=== PATIENT | male | born 1975 ===

== ENCOUNTER → 2020-08-15 10:15 | Outpatient (BNVA) | payer OTHER, SELFPAY | PROVIDERS: PCP Internal Medicine; Visit Provider Orthopaedic Surgery | DX: M77.10 Lateral epicondylitis, unspecified elbow (principal) | CPT/HCPCS: 20551; 99212; J1100 ==

== ENCOUNTER 2021-07-02 04:29 | Emergency (ER) | payer OTHER, SELFPAY ==
--- NOTE | 2021-07-02 | ECG_ITS ---
Test Reason : MEDICAL CLERANCE Blood Pressure : / mmHG Vent. Rate : 084 BPM Atrial Rate : 084 BPM P-R Int : 146 ms QRS Dur : 098 ms QT Int : 412 ms P-R-T Axes : 076 074 066 degrees QTc Int : 486 ms Normal sinus rhythm Prolonged QT Abnormal ECG When compared with ECG of 14-JUL-2019 07:20, Nonspecific T wave abnormality no longer evident in Inferior leads QT has lengthened Referred By: Fariha Dunlap Electronically Signed By:Pantera Jacobson
[2021-07-02 04:39] VITALS: BP 125/86; PULSE 102; RESP 16; TEMP 36.9; O2SAT 98; BMI 19.8
[2021-07-02 05:14] VITALS: BP 125/86; PULSE 102; RESP 17; TEMP 36.9; O2SAT 98
[2021-07-02 05:26] LABS: Basophils Percent Auto 0.5 % (0-2); Eosinophils Percent Auto 0.5 % (0-4); Hematocrit 32.4 % (42.0-52.0); Hemoglobin 10.8 g/dl (14.0-18.0); Imm Gran Abs Auto 0.01 X10*3/uL (0.00-0.03); Imm Gran Pct Auto 0.1 % (0.0-0.4); Lymphocytes Absolute Auto 1.9 X10*3/uL (1.2-4.9); Lymphocytes Percent Auto 23.6 % (20-40); MANUAL DIFF FLAG NO; Mean Corpuscular HGB Conc 33.3 g/dl (31.0-36.0); Mean Corpuscular Hemoglobin 29.7 pg (27.0-33.0); Mean Platelet Volume 8.8 fL (9.4-12.4); Monocytes Absolute Auto 0.7 X10*3/uL (0.1-1.2); Neutrophils Absolute Auto 5.5 x10*3/uL (2.0-8.3); Neutrophils Percent Auto 67.3 % (45-73); Platelet Count 412 X10*3/uL (160-400); Red Blood Count 3.64 X10*6/uL (4.60-5.80); White Blood Count 8.1 X10*3/uL (4.8-10.8)
[2021-07-02 05:27] LABS: Appearance Urine CLEAR; Color Urine YELLOW; Glucose Urine UA NEG (NEG); Leukocyte Esterase Urine NEG (NEG); Nitrite Urine NEG (NEG); Specific Gravity - Urine >= 1.030 (1.005-1.025); UACC Culture Trigger NO; Urine Blood TRACE (NEG); Urine Ketones 5 MG/DL (NEG); Urine Protein 1+ MG/DL (NEG-TRACE)
[2021-07-02 05:34] LABS: Bacteria Urine 1+ /LPF; Mucus Urine 2+ /LPF; Squamous Epithelial Cell Urine 1+ /LPF
[2021-07-02 05:39] LABS: COVID-19 Test Negative (Negative)
[2021-07-02 05:41] LABS: Ethanol < 10 mg/dL
--- NOTE | 2021-07-02 05:42 | PC.NURSE ---
Patient is currently in bed appears sleeping, no distress observed/reported, med rec completed, patient is currently not on any medication, [facility] referral completed/confirmed, patient will be evaluated in the morning, VSS, Behavior appropriate and non concerning at this time, will continue to monitor.
[2021-07-02 05:43] LABS: Anion Gap 12 (12-20); Blood Urea Nitrogen 15 mg/dL (9-16); Calcium 9.7 mg/dL (8.4-10.2); Carbon Dioxide 26 mmol/L (22-29); Chloride 104 mmol/L (96-108); Creatinine Clr Calc Pharmacy 72.2; Estimated Glomerular Filt Rate > 60; Glucose Random 116 mg/dL (60-115); Potassium 3.3 mmol/L (3.3-5.1); Sodium 139 mmol/L (135-145)
[2021-07-02 05:43] LABS: Amphetamine Screen Urine Not Detected (Not Detect); Barbiturates, Urine Not Detected (Not Detect); Benzodiazepines Screen Urine Not Detected (Not Detect); Cannabinoid Screen Urine POSITIVE (Not Detect); Cocaine Screen Urine POSITIVE (Not Detect); Fentanyl, urine Not Detected (Not Detect); Opiate Screen Urine Not Detected (Not Detect); Phencyclidine Screen Urine Not Detected (Not Detect)
--- NOTE | 2021-07-02 06:13 | ED_ITS ---
HPI - Psych General Chief Complaint: Psychiatric Symptoms Stated Complaint: crisis Time Seen by Provider: 07/02/21 06:13 History of Present Illness HPI Narrative: Patient is a 46-year-old male with a history of anxiety and depression. Long history of cocaine use. Patient used cocaine subsequently called PD state that he has hallucination of people coming into his house. EMS reports nobody was trying to go in his house. After calling the PD 3 times. Patient was sent to the ED for further evaluation. Patient denies suicidal homicidal ideation. Patient positive using cocaine. Denies using heroin or any other recreational drugs. Patient is from home. Related Data Home Medications Medication Instructions Recorded Confirmed No Known Home Meds 07/02/21 07/02/21 Allergies Allergy/AdvReac Type Severity Reaction Status Date / Time SEASONAL ALLERGIES Allergy Mild RUNNY Uncoded 04/11/20 14:57 NOSE, SNEEZING Review of Systems Review of Systems: No fever no chills no chest pain or shortness of breath Yes all other systems are reviewed and are negative PMFSH Past Medical History Attestation statement: The following information was validated with the patient. Medical History Anxiety and depression Bladder outlet obstruction Carpal tunnel syndrome Cognitive impairment GERD (gastroesophageal reflux disease) Hypercholesterolemia Low back pain Obstructive sleep apnea Polysubstance abuse Tear of lateral meniscus of right knee Surgical History History of bowel resection Family History Family History Father COPD (chronic obstructive pulmonary disease) ALS (amyotrophic lateral sclerosis) Mother No problems noted. Maternal Uncle Renal cell cancer Social History Social History (Updated 08/15/20 @ 10:45 by ZIGGY Wilde) Alcohol intake: never Current occupational status: unemployed Current occupation: right handed Physical Exam Vital Signs: Vital Signs: Last Vital Signs Temp 98.4 F 07/02/21 05:14 Pulse 102 H 07/02/21 05:14 Resp 17 07/02/21 05:14 BP 125/86 07/02/21 05:14 Pulse Ox 98 07/02/21 05:14 BMI result Body Mass Index 19.8 Appearance: Alert. Oriented X3. No acute distress. Eyes: Pupils equal, round and reactive to light. ENT: Pharynx normal. Neck: Normal inspection. Neck supple. No lymph nodes noted. No crepitus CVS: Normal heart rate and rhythm. Pulses normal. Normal S1 and S2 Respiratory: No respiratory distress. Breath sounds normal. No Wheezing. No rales Abdomen: Soft and nontender. No rigidity. No distention. good BS x4 Skin: Skin warm and dry. Normal skin color. Normal skin turgor. Extremities: No lower extremity edema. Neurovascular intact to all extremities. No Lacerations. No Rash Neuro: Oriented X 3. No motor deficit. No sensory deficit. Moving all extermities. No slurred speech. Cranial nerves grossly intact MDM - Psych MDM Narrative Medical decision making narrative: Patient well appearing no distress. Medically cleared sleeping. Awaiting evaluation by crisis. Lab Data Result diagrams: 07/02/21 05:13 07/02/21 05:13 Labs: Lab Results 07/02/21 07/02/21 07/02/21 Range/Units 05:13 05:13 05:13 WBC 8.1 (4.8-10.8) X10*3/uL RBC 3.64 L (4.60-5.80) X10*6/uL Hgb 10.8 L (14.0-18.0) g/dl Hct 32.4 L (42.0-52.0) % MCV 89.0 (80.0-98.0) fL MCH 29.7 (27.0-33.0) pg MCHC 33.3 (31.0-36.0) g/dl RDW 14.0 (11.0-16.0) % Plt Count 412 H (160-400) X10*3/uL MPV 8.8 L (9.4-12.4) fL Immature Gran % (Auto) 0.1 (0.0-0.4) % Neut % (Auto) 67.3 (45-73) % Lymph % (Auto) 23.6 (20-40) % [place] % (Auto) 8.0 (2-11) % Eos % (Auto) 0.5 (0-4) % Baso % (Auto) 0.5 (0-2) % Lymph # (Auto) 1.9 (1.2-4.9) X10*3/uL [place] # (Auto) 0.7 (0.1-1.2) X10*3/uL Eos # (Auto) 0.0 (0.0-0.4) X10*3/uL Baso # (Auto) 0.0 (0.0-0.2) X10*3/uL Abs Immat Gran (auto) 0.01 (0.00-0.03) X10*3/uL Absolute Neuts (auto) 5.5 (2.0-8.3) x10*3/uL Absolute Nucleated RBC 0.000 (0.0-0.012) X10*3/uL Nucleated RBC % (auto) 0.0 (0.0-0.2) /100WBC Sodium 139 (135-145) mmol/L Potassium 3.3 (3.3-5.1) mmol/L Chloride 104 (96-108) mmol/L Carbon Dioxide 26 (22-29) mmol/L Anion Gap 12 (12-20) BUN 15 (9-16) mg/dL Creatinine 1.11 (0.5-1.4) mg/dL Estim Creat Clear Calc 72.2 Estimated GFR > 60 Random Glucose 116 H (60-115) mg/dL Calcium 9.7 (8.4-10.2) mg/dL Urine Color Urine Appearance Urine pH (5.0-8.0) Ur Specific [place] (1.005-1.025) Urine Protein (NEG-TRACE) MG/DL Urine Glucose (UA) (NEG) MG/DL Urine Ketones (NEG) MG/DL Urine Blood (NEG) Urine Nitrite (NEG) Ur Leukocyte Esterase (NEG) Urine RBC (0) /HPF Urine WBC (0-4) /HPF Ur Squamous Epith Cells /LPF Urine Bacteria /LPF Hyaline Casts /LPF Urine Mucus /LPF Urine Opiates Screen (Not Detect) Urine Fentanyl Screen (Not Detect) Ur Barbiturates Screen (Not Detect) Ur Phencyclidine Scrn (Not Detect) Ur Amphetamines Screen (Not Detect) U Benzodiazepines Scrn (Not Detect) Urine Cocaine Screen (Not Detect) U Marijuana (THC) Screen (Not Detect) Ethyl Alcohol mg/dL COVID-19 (AMANDA) Negative (Negative) COVID-19 Clin Com See Note 07/02/21 07/02/21 07/02/21 Range/Units 05:13 05:19 05:19 WBC (4.8-10.8) X10*3/uL RBC (4.60-5.80) X10*6/uL Hgb (14.0-18.0) g/dl Hct (42.0-52.0) % MCV (80.0-98.0) fL MCH (27.0-33.0) pg MCHC (31.0-36.0) g/dl RDW (11.0-16.0) % Plt Count (160-400) X10*3/uL MPV (9.4-12.4) fL Immature Gran % (Auto) (0.0-0.4) % Neut % (Auto) (45-73) % Lymph % (Auto) (20-40) % [place] % (Auto) (2-11) % Eos % (Auto) (0-4) % Baso % (Auto) (0-2) % Lymph # (Auto) (1.2-4.9) X10*3/uL [place] # (Auto) (0.1-1.2) X10*3/uL Eos # (Auto) (0.0-0.4) X10*3/uL Baso # (Auto) (0.0-0.2) X10*3/uL Abs Immat Gran (auto) (0.00-0.03) X10*3/uL Absolute Neuts (auto) (2.0-8.3) x10*3/uL Absolute Nucleated RBC (0.0-0.012) X10*3/uL Nucleated RBC % (auto) (0.0-0.2) /100WBC Sodium (135-145) mmol/L Potassium (3.3-5.1) mmol/L Chloride (96-108) mmol/L Carbon Dioxide (22-29) mmol/L Anion Gap (12-20) BUN (9-16) mg/dL Creatinine (0.5-1.4) mg/dL Estim Creat Clear Calc Estimated GFR Random Glucose (60-115) mg/dL Calcium (8.4-10.2) mg/dL Urine Color YELLOW Urine Appearance CLEAR Urine pH 6.0 (5.0-8.0) Ur Specific [place] >= 1.030 H (1.005-1.025) Urine Protein 1+ H (NEG-TRACE) MG/DL Urine Glucose (UA) NEG (NEG) MG/DL Urine Ketones 5 (NEG) MG/DL Urine Blood TRACE (NEG) Urine Nitrite NEG (NEG) Ur Leukocyte Esterase NEG (NEG) Urine RBC 1-4 (0) /HPF Urine WBC 1-4 (0-4) /HPF Ur Squamous Epith Cells 1+ /LPF Urine Bacteria 1+ /LPF Hyaline Casts 1-4 /LPF Urine Mucus 2+ /LPF Urine Opiates Screen Not Detected (Not Detect) Urine Fentanyl Screen Not Detected (Not Detect) Ur Barbiturates Screen Not Detected (Not Detect) Ur Phencyclidine Scrn Not Detected (Not Detect) Ur Amphetamines Screen Not Detected (Not Detect) U Benzodiazepines Scrn Not Detected (Not Detect) Urine Cocaine Screen POSITIVE H (Not Detect) U Marijuana (THC) Screen POSITIVE H (Not Detect) Ethyl Alcohol < 10 mg/dL COVID-19 (AMANDA) (Negative) COVID-19 Clin Com Discharge Plan Discharge Clinical Impression: Cocaine abuse Prescriptions: No Action No Known Home Meds RF: 0
--- NOTE | 2021-07-02 07:09 | PC.NURSE ---
patient appears to remain asleep at present respirations even and unlabored, patient appears in no distress
== END 2021-07-02 16:14 | disposition home or self-care (01) ==
PROVIDERS: Emergency Provider Emergency Medicine Emergency Medical Services; PCP Internal Medicine
DX: F14.10 Cocaine abuse, uncomplicated (principal); Z20.822 Contact with and (suspected) exposure to COVID-19
CPT/HCPCS: 36415; 80048; 80307; 81001; 82077; 85025; 87635; 93005; 99284

== ENCOUNTER 2022-06-26 19:24 | Emergency (ER) | payer OTHER, SELFPAY ==
--- NOTE | ~2022-06-26 | CT_ITS ---
EXAMINATION: CT cervical spine wo IV con, CT head/brain wo IV con INDICATION INFORMATION: Reason for Exam neck pain COMPARISON: Trauma TECHNIQUE: Separate noncontrast CT examinations of the head and cervical spine were performed. Coronal and sagittal images were created for each examination at the technologist workstation. This CT examination was performed using dose optimization techniques as appropriate, variously including the following: *Automated exposure control *Adjustment of mA and/or kV according to patient size (this includes techniques or standardized protocols for targeted exams where dose is matched to indication/reason for exam; i.e. extremities or head) *Use of iterative reconstruction technique DLP: 940 mGy-cm FINDINGS: Head: No acute osseous or soft tissue abnormality. The mastoid air cells and visualized portions of the paranasal sinuses are well aerated. There is no evidence of acute intracranial hemorrhage or territorial infarction. Incidentally noted 2.2 cm left posterior fossa arachnoid cyst. No abnormal mass effect or midline shift is seen. [place] to white matter differentiation is well preserved. No extra-axial fluid collections are identified. No hydrocephalus. Cervical spine: There is no evidence of acute cervical spine fracture. Vertebral bodies remain normal in height. Alignment is maintained. Disc space heights are maintained. No pre- or paravertebral soft tissue abnormality is identified. Visualized portions of the lung apices are unremarkable. The thyroid gland is unremarkable. CT/CT cervical spine wo IV con IMPRESSION: 1. No acute intracranial abnormality. 2. No cervical spine fracture or traumatic malalignment.
--- NOTE | ~2022-06-26 | CT_ITS ---
EXAMINATION: CT cervical spine wo IV con, CT head/brain wo IV con INDICATION INFORMATION: Reason for Exam neck pain COMPARISON: Trauma TECHNIQUE: Separate noncontrast CT examinations of the head and cervical spine were performed. Coronal and sagittal images were created for each examination at the technologist workstation. This CT examination was performed using dose optimization techniques as appropriate, variously including the following: *Automated exposure control *Adjustment of mA and/or kV according to patient size (this includes techniques or standardized protocols for targeted exams where dose is matched to indication/reason for exam; i.e. extremities or head) *Use of iterative reconstruction technique DLP: 940 mGy-cm FINDINGS: Head: No acute osseous or soft tissue abnormality. The mastoid air cells and visualized portions of the paranasal sinuses are well aerated. There is no evidence of acute intracranial hemorrhage or territorial infarction. Incidentally noted 2.2 cm left posterior fossa arachnoid cyst. No abnormal mass effect or midline shift is seen. [place] to white matter differentiation is well preserved. No extra-axial fluid collections are identified. No hydrocephalus. Cervical spine: There is no evidence of acute cervical spine fracture. Vertebral bodies remain normal in height. Alignment is maintained. Disc space heights are maintained. No pre- or paravertebral soft tissue abnormality is identified. Visualized portions of the lung apices are unremarkable. The thyroid gland is unremarkable. CT/CT head/brain wo IV con IMPRESSION: 1. No acute intracranial abnormality. 2. No cervical spine fracture or traumatic malalignment.
--- NOTE | ~2022-06-26 | CT_ITS ---
EXAMINATION: CT CHEST, ABDOMEN AND PELVIS WITH CONTRAST CLINICAL INFORMATION: Rib pain and right flank pain status post trauma COMPARISON: CTA chest 07/13/2019 TECHNIQUE: Multidetector volumetric imaging was performed from the thoracic inlet through the pubic symphysis. Sagittal and coronal reformatted images were obtained on the technologist's workstation. Axial MIP volume rendering provided. Oral contrast: No. Intravenous contrast: 85 mL of Omnipaque 350. No contrast reaction reported. Sagittal and coronal reformatted images were obtained on the technologist's workstation. This CT examination was performed using dose optimization techniques as appropriate, variously including the following: *Automated exposure control *Adjustment of mA and/or kV according to patient size (this includes techniques or standardized protocols for targeted exams where dose is matched to indication/reason for exam; i.e. extremities or head) *Use of iterative reconstruction technique DLP: 751 mGy-cm FINDINGS: CHEST: Lungs: The lungs are clear with no evidence of inflammation or nodules. Mediastinum: Normal heart size. No pericardial effusion. Normal caliber thoracic aorta. No dissection or other acute aortic injury. Central pulmonary arteries enhance normally. No mediastinal hematoma. No mediastinal or hilar lymphadenopathy. Pericardium/Pleura: There is no significant effusion. No pleural mass or thickening. No pneumothorax. Chest Wall/Axilla: Unremarkable. ABDOMEN/PELVIS: Liver, Gallbladder, Biliary Tree: The liver is normal in size, shape, and attenuation. No focal hepatic lesion or biliary ductal dilatation is present. The gallbladder is unremarkable with no evidence of radiopaque gallstones, gallbladder wall thickening, or pericholecystic inflammatory changes. Pancreas: Unremarkable. Spleen: Unremarkable. Adrenal Glands: Unremarkable. Kidneys and Ureters: Symmetric nephrograms. No hydronephrosis. Punctate 1-2 mm nonobstructing right upper pole renal calculus. Couple of small low density simple appearing right and left renal cysts are present measuring up to 1.4 cm in size. No follow-up recommended. No perinephric collection. No renal laceration. Bladder: Unremarkable. Gastrointestinal Tract: Patulous loop of small bowel in the pelvis with fecalization of contents consistent with prior surgery and some stasis. No dilated bowel loops. No bowel wall thickening. Appendix is not visualized. No inflammatory change in the right lower quadrant. No free air free fluid Abdominal Wall: No hernia. No rectus sheath hematoma. Lymphovascular Structures: Lymph nodes: No lymphadenopathy. Vascular: Normal caliber abdominal aorta. No abnormal outpouching or dissection. No retroperitoneal hematoma. Pelvic Viscera: Unremarkable. OSSEOUS STRUCTURES: No acute fracture or suspicious osseous lesion. No traumatic subluxation the thoracolumbar spine. CT/CT abdomen pelvis w IV con IMPRESSION: 1. No acute traumatic injury identified in the chest, abdomen, or pelvis. 2. No acute fracture.
[2022-06-26 19:44] VITALS: BP 117/79; BP 142/82; PULSE 109; PULSE 82; RESP 16; TEMP 37.1; O2SAT 99; BMI 18.8
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
[2022-06-26 20:39] LABS: MANUAL DIFF FLAG NO
[2022-06-26] MEDS: Lidocaine 4 % Patch ADH..PATCH 1 PATCH TRANSDERMA (20:39)
[2022-06-26 20:42] LABS: Basophils Percent Auto 0.5 % (0-2); Eosinophils Absolute Auto 0.1 X10*3/uL (0.0-0.4); Eosinophils Percent Auto 1.6 % (0-4); Hematocrit 37.2 % (42.0-52.0); Hemoglobin 12.4 g/dl (14.0-18.0); Imm Gran Abs Auto 0.02 X10*3/uL (0.00-0.03); Imm Gran Pct Auto 0.2 % (0.0-0.4); Lymphocytes Absolute Auto 1.6 X10*3/uL (1.2-4.9); Lymphocytes Percent Auto 19.1 % (20-40); Mean Corpuscular HGB Conc 33.3 g/dl (31.0-36.0); Mean Corpuscular Hemoglobin 30.2 pg (27.0-33.0); Mean Corpuscular Volume 90.7 fL (80.0-98.0); Mean Platelet Volume 8.6 fL (9.4-12.4); Monocytes Absolute Auto 0.7 X10*3/uL (0.1-1.2); Neutrophils Absolute Auto 5.6 x10*3/uL (2.0-8.3); Neutrophils Percent Auto 69.6 % (45-73); Platelet Count 420 X10*3/uL (160-400); Red Cell Distribution Width 12.3 % (11.0-16.0); White Blood Count 8.1 X10*3/uL (4.8-10.8)
[2022-06-26 20:54] LABS: Anion Gap 11 (12-20); Blood Urea Nitrogen 26 mg/dL (9-16); Calcium 9.9 mg/dL (8.4-10.2); Carbon Dioxide 30 mmol/L (22-29); Chloride 99 mmol/L (96-108); Creatinine Clr Calc Pharmacy 60.1; Estimated Glomerular Filt Rate > 60; Glucose Random 81 mg/dL (60-115); Potassium 4.1 mmol/L (3.3-5.1); Sodium 136 mmol/L (135-145)
[2022-06-26] MEDS: iohexoL 350 MG/ML 100 ML INFUS..BTL IV (21:54)
[2022-06-26] MEDS: Morphine Sulfate Immed Release 15 MG TABLET PO (22:35)
== END 2022-06-26 22:42 ==
PROVIDERS: Physician Assistant; Emergency Provider Emergency Medicine Emergency Medical Services
DX: R51.9 Headache, unspecified (principal); R07.81 Pleurodynia; M54.6 Pain in thoracic spine; M54.2 Cervicalgia; R10.9 Unspecified abdominal pain; Z79.899 Other long term (current) drug therapy
CPT/HCPCS: 36415; 70450; 71260; 72125; 74177; 80048; 85025; 99284; Q9967

== ENCOUNTER 2022-09-17 17:29 | Emergency (ER) | payer OTHER, SELFPAY ==
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
[2022-09-17 17:37] VITALS: BP 142/74; PULSE 88; RESP 18; TEMP 36.8; O2SAT 100; BMI 18.4
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
[2022-09-17] MEDS: Ketorolac Tromethamine 15 MG/ML VIAL 30 MG IM (20:11)
[2022-09-17 20:19] VITALS: BP 119/73; PULSE 78; RESP 14; O2SAT 100
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
== END 2022-09-17 21:13 ==
PROVIDERS: Emergency Provider Emergency Medicine Emergency Medical Services; PCP Internal Medicine
DX: S06.0XAA Concussion with loss of consciousness status unknown, initial encounter (principal); S00.83XA Contusion of other part of head, initial encounter; S00.81XA Abrasion of other part of head, initial encounter; S50.12XA Contusion of left forearm, initial encounter; S50.812A Abrasion of left forearm, initial encounter; S10.91XA Abrasion of unspecified part of neck, initial encounter; Y04.2XXA Assault by strike against or bumped into by another person, initial encounter; Y93.9 Activity, unspecified; F19.10 Other psychoactive substance abuse, uncomplicated; E78.00 Pure hypercholesterolemia, unspecified; Y92.039 Unspecified place in apartment as the place of occurrence of the external cause; Y99.9 Unspecified external cause status; Z79.899 Other long term (current) drug therapy
CPT/HCPCS: 70450; 70486; 71045; 72125; 73090; 96372; 99284; J1885

== ENCOUNTER 2023-04-22 14:24 | Outpatient (AMB) | payer OTHER, SELFPAY ==
[2023-04-22 14:29] VITALS: BP 110/80; PULSE 90; O2SAT 98; BMI 25.8
--- NOTE | 2023-04-22 14:29 | A.OFFPC_ITS ---
Vital Signs 04/22/23 14:29 Height 5 ft 9 in Weight 175 lb BMI 25.8 BP 110/80 Blood Pressure Location Lt brachial Position Sitting Pulse 90 Pulse Source Pulse Oximeter Temp Source Skin Pulse Oximetry (%) 98 Oxygen Delivery Method Room Air Intake Visit Reasons: Annual PE Intake Note: Patient is here today for a physical. Bed Operator Required: No Allergies SEASONAL ALLERGIES Allergy (Mild, Uncoded 04/22/23 14:53) RUNNY NOSE, SNEEZING Medication List - Last Reconciled 04/22/23 by BALDEMAR Mueller acetaminophen 500 mg PO buspirone 10 mg PO BID hydroxyzine HCl 25 mg PO TID prazosin 1 mg PO BEDTIME quetiapine 100 mg PO BEDTIME Tobacco use date assessed: 04/22/23 Dental Screening Dental Screen Date: 04/22/23 Did you have a dental visit in the last 12 months?: No Did you have a dental problem in the last 6 months where you did not have access to dental care?: No Was dental information given to patient?: Patient has dentist HPI Annual PE HPI Details Patient is a 47-year-old male who presents today for physical exam. Patient of Dr. Roth, last visit 2020. Medical history significant for PAIGE-patient reports that he has CPAP machine - he is not using it- machine at his parent's house (encouraged patient to start using CPAP machine), anxiety, depression, hypercholesterolemia, GERD-diet controlled, low back pain-patient reports that he will reestablish with PVSS, anemia. Today we discussed patient's need for colon cancer screening. Patient will call for eye and dental exams. Patient reports that he is now in a recovery program, history of drug use, he has been clean for 3 months, reports his blood work was checked and was told that his liver blood work is elevated, will order blood work. Patient is followed by therapist and psychiatrist at [facility]. Patient denies shortness of breath or chest pain. [facility] Medical History COVID-19 Tear of lateral meniscus of right knee Cognitive impairment Bladder outlet obstruction GERD (gastroesophageal reflux disease) Carpal tunnel syndrome Hypercholesterolemia Anxiety and depression Obstructive sleep apnea Polysubstance abuse Low back pain Surgical History History of bowel resection Family History Father COPD (chronic obstructive pulmonary disease) ALS (amyotrophic lateral sclerosis) Mother No problems noted. Maternal Uncle Renal cell cancer Social History Housing: Other ([facility]iary house ) Alcohol intake: never Patient Tobacco Use Status: Former Tobacco user Quit Date: 2011 e-Cigarette/Vaping Use: Currently Using Substance Use Type: Crack/Cocaine service: No Current occupational status: unemployed Current occupation: right handed Cognitive needs: No Hearing needs: No Vision needs: No Questionnaire PHQ-9 Over the last 2 weeks, how often have you been bothered by any of the following problems? 1. Little interest or pleasure in doing things: not at all 2. Feeling down, depressed, or hopeless: not at all 3. Trouble falling or staying asleep, or sleeping too much: not at all 4. Feeling tired or having little energy: not at all 5. Poor appetite or overeating: not at all 6. Feeling bad about yourself - or that you are a failure or have let yourself or your family down: not at all 7. Trouble concentrating on things, such as reading the newspaper or watching television: not at all 8. Moving or speaking so slowly that other people could have noticed. Or the opposite - being so fidgety or restless that you have been moving around a lot more than usual: not at all 9. Thoughts that you would be better off or of hurting yourself in some way: not at all Total score: 0 Depression Screening Interpretation: Negative [id number] - PHQ-9 Billing: Yes Source: Developed by Drs. Saroj Patel, Neha Guillen, Prashant Alvarez and colleagues, with an educational bhargav from [employer]. Thrive Questionnaire Date Thrive assessed: 04/22/23 I am a: Patient What is your living situation today?: I have a steady place to live Within the past 12 months, did the food you bought not last and you didn't have the money to get more?: Never true Within the past 12 months, did you worry whether your food would run out before you got money to buy more?: Never true Do you have trouble paying for medicines?: No Do you have trouble getting transportation to medical appointments?: No Do you have trouble paying your heating and electricity bill?: No Do you have trouble taking care of your child, family member or friend?: No Do you have trouble with day-to-day activities such as bathing, preparing meals, shopping, managing finances, etc.?: No Are you currently unemployed and looking for a job?: No Are you interested in more education?: No Currently or been in a relationship where the following occur: no concerns reported AUDIT C Alcohol Use Questionnaire (AUDIT-C) 1. How often do you have a drink containing alcohol?: Never 2. How many drinks containing alcohol do you have on a typical day when you are drinking?: 1 or 2 3. How often do you have six or more drinks on one occasion?: Never Total Score: 0 Score Reviewed/Action Taken: No DAVID-7 AMB Questionnaire DAVID-7 Date DAVID - 7 assessed: 04/22/23 Feeling nervous, anxious, or on edge: 0 = Not at all Not being able to stop or control worryin = Not at all Worrying too much about different things: 0 = Not at all Trouble relaxin = Not at all Being so restless that it is hard to sit still: 0 = Not at all Becoming easily annoyed or irritable: 0 = Not at all Feeling afraid as if something awful might happen: 0 = Not at all Total DAVID-7 score (0-4 normal; 5-9 mild; 10-14 moderate; 15-21 severe): 0 Source: Developed by Drs. Saroj Patel, Neha Guillen, Prashant Alvarez and colleagues, with an educational bhargav from [employer]. DAVID-7 Assessment Billing DAVID-7 Assessment Tool: DAVID-7 Assessment 81171 Review of Systems Const Denies body aches, Denies chills, Denies fever(s) and Denies headache(s) Eyes Denies change in vision ENT Denies dizziness, Denies otalgia, Denies headache(s), Denies nasal discharge, Denies sinus pain and Denies sore throat Card Denies chest pain, Denies edema, Denies lightheadedness and Denies dyspnea Resp Denies dyspnea and Denies wheezing GI Denies abdominal pain, Denies constipation, Denies diarrhea, Denies nausea and Denies vomiting Denies dysuria Musc Denies myalgias Skin/Breast Denies rash Neuro Denies dizziness and Denies headache(s) Aller/Immun Denies wheezing Physical exam (Primary Care) Vital Signs: Last Vital Signs Pulse 90 04/22/23 14:29 BP 110/80 04/22/23 14:29 Pulse Ox 98 04/22/23 14:29 Oxygen Delivery Method Room Air 04/22/23 14:29 BMI result Body Mass Index 25.8 Tobacco/Smoking Status: Tobacco use Status Tobacco use date assessed 04/22/23 04/22/23 14:30 Patient Tobacco Use Status Former Tobacco user 04/22/23 14:40 e-Cigarette/Vaping Use Currently Using 04/22/23 14:40 PHQ-9: PHQ-9 Score PHQ-9: Total score 0 04/22/23 14:40 Depression Screening Interpretation: Negative Thrive Assessment: Date of Thrive Assessment Date Thrive assessed 04/22/23 04/22/23 14:30 Currently or been in a relationship where the following occur: no concerns reported Const General: cooperative and no acute distress Orientation/consciousness: patient oriented x3 HENMT Head: Yes normocephalic and Yes atraumatic Ears: TM's normal bilaterally Face and sinus: Yes sinuses nontender Mouth: oropharynx normal and moist mucous membranes Throat: Yes posterior oropharynx normal Eyes General: appearance normal, both eyes and all related structures Pupils: Equal, round and reactive pupils present EOM: EOMs intact bilaterally Neck Neck: Yes normal visual inspection, Yes full ROM and Yes no lymphadenopathy Thyroid: Thyroid normal Resp Effort & Inspection: normal respiratory effort and able to speak in complete sentences Auscultation: clear to auscultation bilaterally, no crackles, no rales, no rhonchi and no wheezes Cardio Rate: regular rate Rhythm: regular rhythm Heart sounds: S1 normal heart sound present, S2 normal heart sound present and no murmurs GI Palpation (GI): Soft to palpation, not firm, nontender, no guarding, not rigid and no hepatosplenomegaly Auscultation: normal bowel sounds General: No CVA tenderness Back/Spine/Pelvis Back: No CVA tenderness Skin General skin exam: no rashes or lesions noted Neuro General: patient oriented x3 Cranial nerves: Yes Equal, round and reactive pupils present Gait exam (Neuro): Normal gait present Extrem General: Yes full ROM and No edema Assessment and Plan Assessment & Plan (1) Screening for colon cancer: Code(s): Z12.11 - Encounter for screening for malignant neoplasm of colon (2) Anemia: Code(s): D64.9 - Anemia, unspecified Plan: Will check blood work (3) GERD (gastroesophageal reflux disease): Code(s): K21.9 - Gastro-esophageal reflux disease without esophagitis Qualifiers: Esophagitis presence: without esophagitis Qualified Code(s): K21.9 - Gastro-esophageal reflux disease without esophagitis Plan: Diet controlled (4) Hypercholesterolemia: Code(s): E78.00 - Pure hypercholesterolemia, unspecified Plan: Lipid panel ordered Low-cholesterol diet (5) Anxiety and depression: Comment: NANETTE Galdamez Code(s): F41.9 - Anxiety disorder, unspecified; F32.9 - Major depressive disorder, single episode, unspecified Plan: Continue to follow-up with psychiatry and therapist Continue current treatment as prescribed by Psychiatry (6) Obstructive sleep apnea: Code(s): G47.33 - Obstructive sleep apnea (adult) (pediatric) Plan: Encouraged to use CPAP machine (7) Adult general medical exam: Code(s): Z00.00 - Encounter for general adult medical examination without abnormal findings Orders: Orders Lipid Panel Today E78.00 - Pure hypercholesterolemia, unspecified Vitamin D 25-OH Total Today E78.00 - Pure hypercholesterolemia, unspecified Vitamin B12 and Folate Today E78.00 - Pure hypercholesterolemia, unspecified TSH reflex Free T4 Today F32.9 - Major depressive disorder, single episode, unspecified, F41.9 - Anxiety disorder, unspecified Comprehensive [place]. Panel Fast Today F32.9 - Major depressive disorder, single episode, unspecified, F41.9 - Anxiety disorder, unspecified Complete Blood Count Auto Diff Today D64.9 - Anemia, unspecified Referrals Gastroenterology Referral Z12.11 - Encounter for screening for malignant neoplasm of colon Coding Level of Care Code Est Pt Prev Care 40-64y(66770) Diagnoses Screening for colon cancer Z12.11 Anemia D64.9 Gastroesophageal reflux disease without esophagitis K21.9 Esophagitis presence: without esophagitis Hypercholesterolemia E78.00 Anxiety and depression F41.9; F32.9 Obstructive sleep apnea G47.33 Adult general medical exam Z00.00 Additional Codes DAVID-7 Assessment Billing - DAVID-7 Assessment Tool: DAVID-7 Assessment [id number] ([id number])
== END 2023-04-22 15:07 | disposition home or self-care (01) ==
PROVIDERS: PCP Internal Medicine; Visit Provider Nurse Practitioner Family
DX: Z00.00 Encounter for general adult medical examination without abnormal findings (principal); D64.9 Anemia, unspecified; K21.9 Gastro-esophageal reflux disease without esophagitis; E78.00 Pure hypercholesterolemia, unspecified; F41.9 Anxiety disorder, unspecified; F32.9 Major depressive disorder, single episode, unspecified; G47.33 Obstructive sleep apnea (adult) (pediatric)
CPT/HCPCS: 99396

== ENCOUNTER 2023-10-14 13:25 | Outpatient (AMB) | payer OTHER, SELFPAY ==
[2023-10-14 13:27] VITALS: BP 108/80; PULSE 87; O2SAT 100; BMI 30.7
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
== END 2023-10-14 14:38 | disposition home or self-care (01) ==
PROVIDERS: PCP Internal Medicine; Visit Provider Internal Medicine
DX: D64.9 Anemia, unspecified (principal); F19.10 Other psychoactive substance abuse, uncomplicated; M54.50 Low back pain, unspecified; F32.9 Major depressive disorder, single episode, unspecified; G89.29 Other chronic pain; K21.9 Gastro-esophageal reflux disease without esophagitis; F41.1 Generalized anxiety disorder; E78.00 Pure hypercholesterolemia, unspecified; E66.9 Obesity, unspecified; Z68.30 Body mass index [BMI] 30.0-30.9, adult
CPT/HCPCS: 99214

== ENCOUNTER 2023-10-19 09:18 | Outpatient (REF) | payer OTHER, SELFPAY ==
[2023-10-19 09:41] LABS: MANUAL DIFF FLAG NO
[2023-10-19 10:01] LABS: Basophils Absolute Auto 0.1 X10*3/uL (0.0-0.2); Basophils Percent Auto 0.5 % (0-2); Eosinophils Absolute Auto 0.3 X10*3/uL (0.0-0.4); Eosinophils Percent Auto 2.7 % (0-4); Hematocrit 34.5 % (42.0-52.0); Hemoglobin 10.8 g/dl (14.0-18.0); Imm Gran Pct Auto 0.9 % (0.0-0.4); Immature Retic Fraction 35.1 % (2.3-13.4); Lymphocytes Absolute Auto 1.9 X10*3/uL (1.2-4.9); Lymphocytes Percent Auto 17.3 % (20-40); Mean Corpuscular HGB Conc 31.3 g/dl (31.0-36.0); Mean Corpuscular Hemoglobin 26.8 pg (27.0-33.0); Mean Corpuscular Volume 85.6 fL (80.0-98.0); Monocytes Percent Auto 8.5 % (2-11); Neutrophils Absolute Auto 7.8 x10*3/uL (2.0-8.3); Neutrophils Percent Auto 70.1 % (45-73); Platelet Count 424 X10*3/uL (160-400); Red Blood Count 4.03 X10*6/uL (4.60-5.80); Red Cell Distribution Width 14.3 % (11.0-16.0); Retic HGB Equivalent 25.3 pg (30.0-35.0); Reticulocytes Absolute 0.082 X10*6/uL (0.026-0.095); White Blood Count 11.2 X10*3/uL (4.8-10.8)
[2023-10-19 10:37] LABS: Alanine Aminotransferase 29 U/L (0-40); Albumin Level 3.9 g/dL (3.5-5.0); Alkaline Phosphatase 112 U/L (39-117); Anion Gap 10 (12-20); Aspartate Amino Transferase 24 U/L (5-37); Bilirubin Total 0.4 mg/dL (0.0-1.0); Blood Urea Nitrogen 19 mg/dL (9-16); Calcium 9.2 mg/dL (8.4-10.2); Carbon Dioxide 29 mmol/L (22-29); Chloride 104 mmol/L (96-108); Cholesterol 216 mg/dL (<200); Estimated Glomerular Filt Rate > 60; Glucose Fasting 91 mg/dL (60-99); HDL Cholesterol 48 mg/dL (>40); Iron 53 mcg/dL (45-160); LDL Cholesterol Calculated 135 mg/dL (<100); Percent Iron Saturation 14 % (15-50); Potassium 3.9 mmol/L (3.3-5.1); Sodium 139 mmol/L (135-145); Total Iron Binding Capacity 380 mcg/dL (228-428); Total Protein 7.5 g/dL (6.5-8.0); Triglycerides 169 mg/dL (<150); Unsaturated Iron Binding 327 ug/dL
[2023-10-19 10:59] LABS: Ferritin 11 ng/mL (20-250); TSH reflex Free T4 1.35 uIU/mL (0.32-4.0); Vitamin D 25-OH Total 16.4 ng/mL (>30)
[2023-10-19 11:52] LABS: Folate 11.6 ng/mL (> or = 4.0); Vitamin B12 371 pg/mL (200-900)
== END 2023-10-19 09:19 | disposition home or self-care (01) ==
LOC: HO.LAB 09:18
PROVIDERS: PCP Internal Medicine; Visit Provider Internal Medicine
DX: E78.00 Pure hypercholesterolemia, unspecified (principal); F41.9 Anxiety disorder, unspecified; F32.9 Major depressive disorder, single episode, unspecified; D64.9 Anemia, unspecified
CPT/HCPCS: 36415; 80053; 80061; 82306; 82607; 82728; 82746; 83540; 84443; 85025; 85045

== ENCOUNTER 2024-01-05 14:31 | Outpatient (AMB) | payer MEDICAID, SELFPAY ==
--- NOTE | 2024-01-05 14:36 | MHC.OFFVIS ---
Vital Signs 01/05/24 14:41 Height 5 ft 9 in Weight 219 lb 2.232 oz BMI 32.4 BP 128/86 Blood Pressure Location Rt brachial Position Sitting Pulse 92 Pulse Source Pulse Oximeter Pulse Oximetry (%) 97 Oxygen Delivery Method Room Air Intake Visit Reasons: Screening Colonoscopy Intake Note: Jens presents in office today for a routine colo scrn. CC; Pt reports having a hx of colon resectioning and GERD sx. Pt states that his PCP recommended the s/p based on his hx. Pt denies any sx at this time. Pt has no prior hx of colo s/p. 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 male here today for pre colonoscopy screening.? Patient was sent to us by his PCP.? This is his first colonoscopy screening.? Patient has a history of small-bowel obstruction due to Meckel's diverticulum with internal hernia. Surgery was performed on 11/11/[address] Mattson. Patient denies any gastrointestinal symptoms.? Family history of CRC, maternal uncle after diagnosed with colorectal cancer in his 40s.? Denies history of difficulty with sedation or anesthesia in the past.? History of sleep apnea, not using CPAP at this time. Patient reports that currently he is in recovery program since September 07 of this year. Has been clean since. History of crack cocaine use in the past.? Denies any history of cardiac, renal, pulmonary, or hepatic disease.?? No history of infectious? diseases like hepatitis A, B, C, HIV or tuberculosis.? Patient is not on any anticoagulation [facility] Medical History COVID-19 Tear of lateral meniscus of right knee Cognitive impairment Bladder outlet obstruction GERD (gastroesophageal reflux disease) Carpal tunnel syndrome Hypercholesterolemia Anxiety and depression Obstructive sleep apnea Polysubstance abuse Low back pain Surgical History History of bowel resection Family History Father COPD (chronic obstructive pulmonary disease) ALS (amyotrophic lateral sclerosis) Mother No problems noted. Maternal Uncle Renal cell cancer Social History (Reviewed 01/05/24 @ 14:40 by Ousmane Smith [facility]) Housing: Other ([facility] ) Alcohol intake: never Patient Tobacco Use Status: Former Tobacco user Years Smoked: 2011 e-Cigarette/Vaping Use: Currently Using Substance Use Type: Crack/Cocaine service: No Current occupational status: unemployed Current occupation: right handed Cognitive needs: No Hearing needs: No Vision needs: No Review of Systems Const Denies weight gain and Denies weight loss ENT Reports no additional complaints, Denies dysphagia and Denies odynophagia Card Reports no additional complaints Resp Reports no additional complaints GI Denies abdominal pain, Denies belching, Denies melena, Denies bloating, Denies change in bowel habits, Denies dysphagia, Denies excessive flatus, Denies dyspepsia, Denies heartburn, Denies diarrhea, Denies loose stools, Denies nausea, Denies odynophagia and Denies vomiting Reports no additional complaints Musc Reports no additional complaints Neuro Reports no additional complaints Psych Reports no additional complaints Endo Reports no additional complaints Physical Exam Vital Signs: Last Vital Signs Pulse 92 01/05/24 14:41 BP 128/86 01/05/24 14:41 Pulse Ox 97 01/05/24 14:41 Oxygen Delivery Method Room Air 01/05/24 14:41 BMI result Body Mass Index 32.4 Const General: healthy appearing, no acute distress and well developed Nutritional Appearance: well nourished Orientation/consciousness: patient oriented x3 Resp Effort & Inspection: normal respiratory effort, able to speak in complete sentences, no tracheal deviation and symmetric chest movement Auscultation: clear to auscultation bilaterally Cardio Rate: regular rate GI Inspection: Yes normal to inspection and No distended Palpation (GI): Soft to palpation, not firm, nontender and No hepatosplenomegaly present Auscultation: normal bowel sounds General: Yes no CVA tenderness Back/Spine/Pelvis Back: no CVA tenderness Skin General skin exam: elasticity normal, turgor normal and dry skin Neuro General: patient oriented x3 Psych Appearance: grossly normal Mental Status: mental status grossly normal Assessment & Plan Assessment & Plan (1) Colon cancer screening: Code(s): Z12.11 - Encounter for screening for malignant neoplasm of colon Category: Medical (2) Anemia: Code(s): D64.9 - Anemia, unspecified Category: Medical Qualifiers: Anemia type: iron deficiency Iron deficiency anemia type: other iron deficiency Qualified Code(s): D50.8 - Other iron deficiency anemias (3) GERD (gastroesophageal reflux disease): Code(s): K21.9 - Gastro-esophageal reflux disease without esophagitis Category: Medical Qualifiers: Esophagitis presence: without esophagitis Qualified Code(s): K21.9 - Gastro-esophageal reflux disease without esophagitis Plan Patient denies any GI, cardiac or respiratory symptoms.? Denies any issues with anesthesia in the past.? Denies any history of sleep apnea.? No history infectious diseases in the past or present.? Not on any anticoagulation therapy.? As mentioned above in HPI family history of CRC.? Patient denies melena, hematochezia, unintentional weight loss or ribbon like stools.? Patient reports long use of PPI. Currently patient is on omeprazole. Reports that symptoms are under control for the most part. Occasional acid reflux depending on what he eats. Patient will be sent for upper endoscopy to rule out Hawley's, chronic gastritis, esophagitis, duodenitis, H pylori. Discussed at length the pre-procedure,? prep, diet & medications as well as what to expect prior, during and after the procedure.?? Stressed the importance of good bowel prep.? Recommended the use of Vaseline or Calmoseptine OTC & baby wipes with bowel movements to promote comfort.? ?Patient verbalizes understanding and agrees to plan of care.? He was given the opportunity to ask questions and all questions answered.? We will see him after the procedure.? Medications: New bisacodyl (Dulcolax (bisacodyl)) take 4 tabs at noon the day before your colonoscopy 20 mg (4 x 5 mg) PO ONCE 4 tabs 0RF 1 day Z12.11 - Encounter for screening for malignant neoplasm of colon polyethylene glycol 3350 (Miralax) As directed by gastroenterology department at [facility] 238 grams PO ONCE 238 grams 0RF Z12.11 - Encounter for screening for malignant neoplasm of colon Coding Level of Care Code New Pt Level 3 (64766) Diagnoses Colon cancer screening Z12.11 Other iron deficiency anemia D50.8 Anemia type: iron deficiency Iron deficiency anemia type: other iron deficiency Gastroesophageal reflux disease without esophagitis K21.9 Esophagitis presence: without esophagitis Time Spent (min) 40 Comment 30 minutes spent with patient and additional 10 minutes spent reviewing his records
[2024-01-05 14:41] VITALS: BP 128/86; PULSE 92; O2SAT 97; BMI 32.4
== END 2024-01-05 15:40 | disposition home or self-care (01) ==
PROVIDERS: PCP Internal Medicine; Referring Provider Internal Medicine; Visit Provider Nurse Practitioner Family
DX: Z12.11 Encounter for screening for malignant neoplasm of colon (principal); D50.8 Other iron deficiency anemias; K21.9 Gastro-esophageal reflux disease without esophagitis; Z01.818 Encounter for other preprocedural examination
CPT/HCPCS: 99203

== ENCOUNTER → 2024-01-05 14:31 | Outpatient (BNVA) | payer MEDICAID, SELFPAY | PROVIDERS: PCP Internal Medicine; Referring Provider Internal Medicine; Visit Provider Nurse Practitioner Family | DX: K21.9 Gastro-esophageal reflux disease without esophagitis (principal); K46.0 Unspecified abdominal hernia with obstruction, without gangrene; Q43.0 Meckel's diverticulum (displaced) (hypertrophic); D50.8 Other iron deficiency anemias; Z12.11 Encounter for screening for malignant neoplasm of colon | CPT/HCPCS: 99202 ==

== ENCOUNTER 2024-04-27 12:54 | Outpatient (AMB) | payer OTHER, SELFPAY ==
--- NOTE | 2024-04-27 13:00 | MHC.PC.OV ---
Vital Signs 04/27/24 13:02 Height 5 ft 9 in Weight 211 lb BMI 31.2 BP 120/82 Blood Pressure Location Lt brachial Position Sitting Pulse 87 Pulse Source Pulse Oximeter Pulse Oximetry (%) 98 Oxygen Delivery Method Room Air Intake Visit Reasons: Annual PE Rn Clinical Review Required: No Accompanied by: Self / Same As Patient Allergies SEASONAL ALLERGIES Allergy (Mild, Uncoded 04/27/24 13:02) RUNNY NOSE, SNEEZING Medication List - Last Reconciled 04/27/24 by Alicia Roth MD acetaminophen 500 mg PO ascorbate calcium (vitamin C) 500 mg PO DAILY bisacodyl (Dulcolax (bisacodyl)) 20 mg (4 x 5 mg) PO ONCE 1 day buspirone 10 mg PO BID ferrous sulfate 325 mg PO DAILY hydroxyzine HCl 25 mg PO TID omeprazole 20 mg PO DAILY polyethylene glycol 3350 (Miralax) 238 grams PO ONCE prazosin 1 mg PO BEDTIME quetiapine 150 mg PO BEDTIME Tobacco use date assessed: 10/14/23 Dental Screening Dental Screen Date: 04/27/24 Did you have a dental visit in the last 12 months?: No Did you have a dental problem in the last 6 months where you did not have access to dental care?: No Was dental information given to patient?: Patient has dentist HPI Annual PE HPI Details 48-year-old obese male(noted 8 lb weight loss) with GERD hypercholesterolemia history of polysubstance abuse generalized anxiety disorder coming in for physical exam last seen in September 2023. Patient was advised colonoscopy. Patient did see gastroenterology in December and will be scheduled for colonoscopy. patient wants to schedule late this year [facility] Medical History (Updated 04/27/24 @ 13:17 by Alicia Roth MD) Colon cancer screening Screening for colon cancer COVID-19 Tear of lateral meniscus of right knee Cognitive impairment Bladder outlet obstruction GERD (gastroesophageal reflux disease) Carpal tunnel syndrome Hypercholesterolemia Anxiety and depression Obstructive sleep apnea Polysubstance abuse Low back pain Surgical History History of bowel resection Family History (Updated 04/27/24 @ 13:03 by ZIGGY Robles) Father COPD (chronic obstructive pulmonary disease) ALS (amyotrophic lateral sclerosis) Mother No problems noted. Maternal Uncle Renal cell cancer Social History (Updated 04/27/24 @ 13:21 by Alicia Roth MD) Housing: Other ([place] ) Alcohol intake: never Patient Tobacco Use Status: Former Tobacco user Years Smoked: 2011 07 1/2 pack a day e-Cigarette/Vaping Use: Currently Using Second Hand Smoke Exposure: No Substance Use Type: Crack/Cocaine service: No Current occupational status: unemployed Current occupation: right handed Cognitive needs: No Hearing needs: No Vision needs: Yes Questionnaire PHQ-9 Over the last 2 weeks, how often have you been bothered by any of the following problems? 1. Little interest or pleasure in doing things: not at all 2. Feeling down, depressed, or hopeless: not at all 3. Trouble falling or staying asleep, or sleeping too much: not at all 4. Feeling tired or having little energy: not at all 5. Poor appetite or overeating: not at all 6. Feeling bad about yourself - or that you are a failure or have let yourself or your family down: not at all 7. Trouble concentrating on things, such as reading the newspaper or watching television: not at all 8. Moving or speaking so slowly that other people could have noticed. Or the opposite - being so fidgety or restless that you have been moving around a lot more than usual: not at all 9. Thoughts that you would be better off or of hurting yourself in some way: not at all Total score: 0 Depression Screening Interpretation: Negative Depression Screening Done: Yes Source: Developed by Drs. Saroj Patel, Neha Guillen, Prashant Alvarez and colleagues, with an educational bhargav from [employer]. Thrive Questionnaire Date Thrive assessed: 04/21/24 I am a: Patient What is your living situation today?: I do not have a steady places to live I choose not to answer this question Within the past 12 months, did the food you bought not last and you didn't have the money to get more?: I choose not to answer this question Within the past 12 months, did you worry whether your food would run out before you got money to buy more?: I choose not to answer this question Do you have trouble paying for medicines?: No Do you have trouble getting transportation to medical appointments?: No Do you have trouble paying your heating and electricity bill?: No Do you have trouble taking care of your child, family member or friend?: No Do you have trouble with day-to-day activities such as bathing, preparing meals, shopping, managing finances, etc.?: No Are you currently unemployed and looking for a job?: No Are you interested in more education?: No Please select the resources that you would like help with: Housing/Care Home Currently or been in a relationship where the following occur: I choose not to answer THRIVE Score: 1 AUDIT C Alcohol Use Questionnaire (AUDIT-C) 1. How often do you have a drink containing alcohol?: Never Total Score: 0 DAVID-7 AMB Questionnaire DAVID-7 Date DAVID - 7 assessed: 04/27/24 Feeling nervous, anxious, or on edge: 0 = Not at all Not being able to stop or control worryin = Not at all Worrying too much about different things: 0 = Not at all Trouble relaxin = Not at all Being so restless that it is hard to sit still: 0 = Not at all Becoming easily annoyed or irritable: 0 = Not at all Feeling afraid as if something awful might happen: 0 = Not at all Total DAVID-7 score (0-4 normal; 5-9 mild; 10-14 moderate; 15-21 severe): 0 Source: Developed by Drs. Saroj Patel, Neha Guillen, Prashant Alvarez and colleagues, with an educational bhargav from [employer]. Review of Systems Const Denies poor appetite and Denies weakness Eyes Denies no additional complaints ENT Reports Normal hearing present, Denies dizziness, Denies nasal congestion, Denies tinnitus and Denies sore throat Card Denies chest pain, Denies syncope, Denies rapid heart rate and Denies dyspnea Resp Denies cough and Denies dyspnea GI Denies change in stool character, Reports constipation, Denies diarrhea, Denies nausea and Denies vomiting Denies dysuria and Denies urinary frequency Neuro Reports Normal hearing present, Denies confusion, Denies dizziness, Denies syncope and Denies weakness Psych Denies confusion Physical exam (Primary Care) Vital Signs: Last Vital Signs Pulse 87 04/27/24 13:02 BP 120/82 04/27/24 13:02 Pulse Ox 98 04/27/24 13:02 Oxygen Delivery Method Room Air 04/27/24 13:02 BMI result Body Mass Index 31.2 Tobacco/Smoking Status: Tobacco use Status Tobacco use date assessed 10/14/23 04/27/24 13:02 Patient Tobacco Use Status Former Tobacco user 04/27/24 13:02 e-Cigarette/Vaping Use Currently Using 04/27/24 13:02 PHQ-9: PHQ-9 Score PHQ-9: Total score 0 04/27/24 13:05 Depression Screening Interpretation: Negative Thrive Assessment: Date of Thrive Assessment Date Thrive assessed 04/21/24 04/27/24 13:02 Currently or been in a relationship where the following occur: I choose not to answer Const General: alert and awake; No confusion Orientation/consciousness: No confusion HENMT Head: Yes normocephalic Ears: external ears normal and TM's normal bilaterally Face and sinus: Yes normal facial exam Mouth: moist mucous membranes Throat: Yes tonsils normal Eyes Conjunctivae: conjunctivae normal Pupils: Equal, round and reactive pupils present and Pupil accommodation reflex normal Direct Ophthalmoscopy: normal light reflex Neck Neck: No lymphadenopathy Thyroid: Thyroid normal Chest Chest palpation & inspection: normal inspection of the chest Resp Effort & Inspection: normal respiratory effort and no audible wheezes Auscultation: clear to auscultation bilaterally, no crackles, no wheezes and lung sounds not diminished Cardio Rate: regular rate Rhythm: regular rhythm Peripheral pulses: radial pulses present and dorsalis pedis present GI Other: colon test pending Palpation (GI): no masses Auscultation: normal bowel sounds and normoactive bowel sounds Rectal Exam - Male: Yes deferred Male General Exam: Yes normal external exam Skin General skin exam: no rashes or lesions noted Rashes: no rashes Neuro General: deep tendon reflexes 2+ bilaterally and No confusion Cranial nerves: Yes Equal, round and reactive pupils present, Yes Midline tongue present, Yes Normal hearing present and Yes Ability to bilaterally elevate shoulders present Cognition (Neuro): normal cognition Gait exam (Neuro): Normal gait present Motor exam (neuro): 5/5 motor strength present throughout Deep tendon reflexes (DTR's): Right brachioradialis reflex intensity grade: 2+, Left brachioradialis reflex intensity grade: 2+, Right patellar reflex intensity grade: 2+ and Left patellar reflex intensity grade: 2+ Extrem General: No edema Office Procedures Flu Questionnaire Does the patient have a severe egg allergy?: No Immunizations Fluarix Triv [id number] (PF) 45 mcg (15 mcg x 3)/0.5 mL IM syringe Performing Provider: Alicia Roth MD [facility] [place] [facility] Documented (not given) by: ZIGGY Robles on 04/27/24 13:06 Reason Not Given: Patient Refused Coding Level of Care Code Est Pt Prev Care 40-64y(68989) Diagnoses Annual physical exam Z00.00 Obesity (BMI 30.0-34.9) E66.9 Hypercholesterolemia E78.00 Gastroesophageal reflux disease without esophagitis K21.9 Esophagitis presence: without esophagitis Other iron deficiency anemia D50.8 Anemia type: iron deficiency Iron deficiency anemia type: other iron deficiency Generalized anxiety disorder F41.1 Assessment & Plan Assessment & Plan (1) Annual physical exam: Code(s): Z00.00 - Encounter for general adult medical examination without abnormal findings Category: Medical Plan: Patient is advised to eat healthy, keep well hydrated, keep active and have adequate sleep. (2) Obesity (BMI 30.0-34.9): Code(s): E66.9 - Obesity, unspecified Category: Medical Plan: Diet and exercise (3) Hypercholesterolemia: Code(s): E78.00 - Pure hypercholesterolemia, unspecified Category: Medical Plan: Avoid fried foods, chicken skin, eggs, butter margarine, pastries and meat. Be it pork or beef they have a lot of cholesterol LDL goal of less than 130 and triglyceride of less than 150 (4) GERD (gastroesophageal reflux disease): Code(s): K21.9 - Gastro-esophageal reflux disease without esophagitis Category: Medical Qualifiers: Esophagitis presence: without esophagitis Qualified Code(s): K21.9 - Gastro-esophageal reflux disease without esophagitis Plan: Avoid the foods that causes that usually spicy foods, tomato products, juices, coffee, soda and foods that your sensitive to. After eating do not lie down, allow 3-4 hours before in lie down. And keep the head of bed above 30 degrees to avoid the acid from going up. (5) Anemia: Code(s): D64.9 - Anemia, unspecified Category: Medical Qualifiers: Anemia type: iron deficiency Iron deficiency anemia type: other iron deficiency Qualified Code(s): D50.8 - Other iron deficiency anemias Plan: Continuing to monitor. Iron deficiency (6) Generalized anxiety disorder: Comment: [facility] Code(s): F41.1 - Generalized anxiety disorder Category: Medical Plan: Continue with counseling and therapy Orders: Orders Influenza [id number] Immunization Today Z23 - Encounter for immunization Complete Blood Count Auto Diff Today D50.8 - Other iron deficiency anemias Comprehensive Met. Panel Today D50.8 - Other iron deficiency anemias Ferritin Today D50.8 - Other iron deficiency anemias Vitamin B12 and Folate Today D50.8 - Other iron deficiency anemias Thyroid Stimulating Hormone Today D50.8 - Other iron deficiency anemias Lipid Panel Today D50.8 - Other iron deficiency anemias, E78.00 - Pure hypercholesterolemia, unspecified IRON PROFILE Today D50.8 - Other iron deficiency anemias Reticulocyte Count Today D50.8 - Other iron deficiency anemias Uric Acid Today D50.8 - Other iron deficiency anemias
[2024-04-27 13:02] VITALS: BP 120/82; PULSE 87; O2SAT 98; BMI 31.2
== END 2024-04-27 13:34 | disposition home or self-care (01) ==
PROVIDERS: PCP Internal Medicine; Visit Provider Internal Medicine
DX: Z00.00 Encounter for general adult medical examination without abnormal findings (principal); E66.811 Obesity, class 1; Z68.31 Body mass index [BMI] 31.0-31.9, adult; E78.00 Pure hypercholesterolemia, unspecified; K21.9 Gastro-esophageal reflux disease without esophagitis; D50.8 Other iron deficiency anemias; F41.1 Generalized anxiety disorder; Z23 Encounter for immunization

== ENCOUNTER → 2024-04-27 12:54 | Outpatient (BNVA) | payer OTHER, SELFPAY | PROVIDERS: PCP Internal Medicine; Visit Provider Internal Medicine | DX: Z00.01 Encounter for general adult medical examination with abnormal findings (principal); E66.9 Obesity, unspecified; E78.00 Pure hypercholesterolemia, unspecified; K21.9 Gastro-esophageal reflux disease without esophagitis; D50.8 Other iron deficiency anemias; F41.1 Generalized anxiety disorder | CPT/HCPCS: 90471; 96127; 99396 ==

== ENCOUNTER 2025-06-18 11:35 | Outpatient (AMB) | payer OTHER, SELFPAY ==
--- NOTE | 2025-06-18 11:45 | MHC.PC.OV ---
Vital Signs 06/18/25 11:46 Height 5 ft 9 in Weight 177 lb 6 oz BMI 26.2 BP 110/80 Blood Pressure Location Lt brachial Position Sitting Pulse 103 H Pulse Source Pulse Oximeter Temp 96.4 F L Temp Source Temporal Artery Scan Pulse Oximetry (%) 99 Oxygen Delivery Method Room Air Intake Visit Reasons: Annual Physical Intake Note: Patient is here today for a physical. Electrician'S Assistant Required: No Industrial Roofer: Not Required per policy Accompanied by: Self / Same As Patient Allergies SEASONAL ALLERGIES Allergy (Mild, Uncoded 06/18/25 11:46) RUNNY NOSE, SNEEZING Medication List - Last Reconciled 06/18/25 by Carlos Pretty MD bupropion HCl 75 mg PO BID clonidine HCl 0.1 mg PO BID hydroxyzine HCl 25 mg PO TID omeprazole 20 mg PO DAILY quetiapine 150 mg PO DAILY Tobacco use date assessed: 06/18/25 Dental Screening Dental Screen Date: 06/18/25 Did you have a dental visit in the last 12 months?: No Did you have a dental problem in the last 6 months where you did not have access to dental care?: No Was dental information given to patient?: No HPI HPI Comments History of Present Illness Details The patient is a 50 year old M with PMH of MDD, substance use disorder on Clonidine, MEAGHAN, vit D deficiency, presenting for an annual physical examination and to complete gunter assistance paperwork. The patient reports a history of anxiety and depression and is currently taking bupropion. The patient has been taking quetiapine since being incarcerated and is currently engaged with a therapist, but has not yet established care with a psychiatrist. The patient is requesting to restart hydroxyzine. The patient has a history of chronic low back pain and bilateral knee pain, for which the patient has previously received cortisone injections. Past laboratory tests from last year showed anemia, a low iron saturation of 14, and low ferritin. The patient reports being on iron supplements in the past. The patient has a prior referral to gastroenterology for colonoscopy but this was not completed due to the patient being incarcerated. Additional history includes a low vitamin D level and hypertension, which is managed with clonidine. The patient is also taking omeprazole. The patient recently experienced a cough and has been using cough drops. [facility] Medical History (Updated 06/18/25 @ 15:07 by Carlos Pretty MD) Colon cancer screening Screening for colon cancer COVID-19 Tear of lateral meniscus of right knee Cognitive impairment Bladder outlet obstruction GERD (gastroesophageal reflux disease) Carpal tunnel syndrome Hypercholesterolemia Anxiety and depression Obstructive sleep apnea Polysubstance abuse Low back pain Surgical History History of bowel resection Family History Father COPD (chronic obstructive pulmonary disease) ALS (amyotrophic lateral sclerosis) Mother No problems noted. Maternal Uncle Renal cell cancer Social History Housing: Other ([facility] ) Alcohol intake: never Patient Tobacco Use Status: Former Tobacco user Years Smoked: 2011 1 1/2 pack a day e-Cigarette/Vaping Use: Currently Using Frequency of e-Cigarette/Vaping Use: Daily Second Hand Smoke Exposure: Yes Substance Use Type: Crack/Cocaine service: No Current occupational status: unemployed Current occupation: right handed Cognitive needs: No Hearing needs: No Vision needs: Yes Questionnaire PHQ-9 Over the last 2 weeks, how often have you been bothered by any of the following problems? 1. Little interest or pleasure in doing things: not at all 2. Feeling down, depressed, or hopeless: not at all 3. Trouble falling or staying asleep, or sleeping too much: not at all 4. Feeling tired or having little energy: not at all 5. Poor appetite or overeating: not at all 6. Feeling bad about yourself - or that you are a failure or have let yourself or your family down: not at all 7. Trouble concentrating on things, such as reading the newspaper or watching television: not at all 8. Moving or speaking so slowly that other people could have noticed. Or the opposite - being so fidgety or restless that you have been moving around a lot more than usual: not at all 9. Thoughts that you would be better off or of hurting yourself in some way: not at all Total score: 0 Depression Screening Interpretation: Negative Depression Screening Done: Yes Source: Developed by Drs. Saroj Patel, Neha Guillen, Prashant Alvarez and colleagues, with an educational bhargav from [employer]. Thrive Questionnaire Date Thrive assessed: 06/18/25 I am a: Patient What is your living situation today?: I do not have a steady places to live I choose not to answer this question Within the past 12 months, did the food you bought not last and you didn't have the money to get more?: I choose not to answer this question Within the past 12 months, did you worry whether your food would run out before you got money to buy more?: I choose not to answer this question Do you have trouble paying for medicines?: No Do you have trouble getting transportation to medical appointments?: No Do you have trouble paying your heating and electricity bill?: No Do you have trouble taking care of your child, family member or friend?: No Do you have trouble with day-to-day activities such as bathing, preparing meals, shopping, managing finances, etc.?: No Are you currently unemployed and looking for a job?: No Are you interested in more education?: No Please select the resources that you would like help with: Housing/Long-Term Currently or been in a relationship where the following occur: I choose not to answer THRIVE Score: 1 AUDIT C Alcohol Use Questionnaire (AUDIT-C) 1. How often do you have a drink containing alcohol?: Never Total Score: 0 DAVID-7 AMB Questionnaire DAVID-7 Date DAVID - 7 assessed: 06/18/25 Feeling nervous, anxious, or on edge: 0 = Not at all Not being able to stop or control worryin = Not at all Worrying too much about different things: 0 = Not at all Trouble relaxin = Not at all Being so restless that it is hard to sit still: 0 = Not at all Becoming easily annoyed or irritable: 0 = Not at all Feeling afraid as if something awful might happen: 0 = Not at all Total DAVID-7 score (0-4 normal; 5-9 mild; 10-14 moderate; 15-21 severe): 0 Source: Developed by Drs. Saroj Patel, Neha Guillen, Prashant Alvarez and colleagues, with an educational bhargav from [employer]. Review of Systems Const Details: As per HPI. Physical exam (Primary Care) Vital Signs: Last Vital Signs Temp 96.4 F L 06/18/25 11:46 Pulse 103 H 06/18/25 11:46 BP 110/80 06/18/25 11:46 Pulse Ox 99 06/18/25 11:46 Oxygen Delivery Method Room Air 06/18/25 11:46 BMI result Body Mass Index 26.2 Tobacco/Smoking Status: Tobacco use Status Tobacco use date assessed 06/18/25 06/18/25 11:56 Patient Tobacco Use Status Former Tobacco user 06/18/25 11:56 e-Cigarette/Vaping Use Currently Using 06/18/25 11:56 PHQ-9: PHQ-9 Score PHQ-9: Total score 0 06/18/25 12:19 Depression Screening Interpretation: Negative Thrive Assessment: Date of Thrive Assessment Date Thrive assessed 06/18/25 06/18/25 11:56 Currently or been in a relationship where the following occur: I choose not to answer Const Other: Pertinent findings are in BOLD GENERAL APPEARANCE NAD, activity normal for age, well developed/ well nourished, no cyanosis, pallor, or diaphoresis. EYES lids/conjunctiva normal. EARS/NOSE/THROAT Mucous membranes moist, nares normal, lips/teeth normal uvula midline without oral pharyngeal erythema, exudate or swelling TMs normal bilaterally. No lymphangitis/lymphedema. HEAD/NECK normocephalic atraumatic, no facial trauma, neck is supple. RESPIRATORY respiratory effort normal, speaks in full sentences, no tripod position, no accessory muscle use. Lungs clear to auscultation without rhonchi, wheezes, rales CARDIAC Regular rate and rhythm, no edema. ABDOMINAL Soft, ND/NT. No evidence of fluid wave. No pulsatile masses on exam, rebound tenderness, Romano sign or pain over Mcburney's point. MUSCLES/EXTREMITIES No abnormal range of motion, no swelling. SKIN Warm, pink and dry. No rashes, dermatoses, petechiae or lesions. NEUROLOGICAL Speech is clear and appropriate. Normal level of consciousness. Gait and coordination are normal. 5/5 strength in all extremities. PSYCH Normal mood and affect. Judgement/competence is appropriate Coding Level of Care Code Est Pt Prev Care 40-64y(53030) Diagnoses Generalized anxiety disorder F41.1 Healthcare maintenance Z00.00 Chronic pain of both knees M25.561; M25.562; G89.29 Chronicity: chronic Laterality: bilateral Chronic midline low back pain without sciatica M54.5; G89.29 Chronicity: chronic Back pain laterality: midline Sciatica presence: without sciatica Iron deficiency anemia, unspecified iron deficiency anemia type D50.9 Iron deficiency anemia type: unspecified iron deficiency Vitamin D deficiency E55.9 Gastroesophageal reflux disease without esophagitis K21.9 Esophagitis presence: without esophagitis Time Spent (min) 45 Assessment & Plan Assessment & Plan (1) Generalized anxiety disorder: Comment: [facility] Code(s): F41.1 - Generalized anxiety disorder Category: Medical Plan: - Continue current medications, bupropion and quetiapine. - Prescribe hydroxyzine as requested by the patient. - A referral will be placed for the patient to establish care with a psychiatrist at the [facility]. (2) Healthcare maintenance: Code(s): Z00.00 - Encounter for general adult medical examination without abnormal findings Category: Medical Plan: CBC, CMP, Lipid panel, A1C, TSH w T4, vit D. Ordered today. Shingles 2 doses when >50 yo. At 50. COVID: two doses. Declined. Pneumococcal: >50 yo. 18-49 with CKD, lung disease, weakened immune system, Heart disease, DM, cochlear implant. At 50. Flu vaccine: Declined. Tdap: every 10 years. Done in 2024. Next due in 2034. Colonoscopy: 45-75. Ordered. AAA: 65 -75. At 65. CT lun - 80. Will address next year. PSA: 50 -70 every two years. NExt year. HIV: Done in the past and it was negative. HCV: Patient reports having it done in the past at another facility and it was negative. (3) Knee pain: Code(s): M25.569 - Pain in unspecified knee Category: Medical Qualifiers: Chronicity: chronic Laterality: bilateral Qualified Code(s): M25.561 - Pain in right knee; M25.562 - Pain in left knee; G89.29 - Other chronic pain Plan: - A referral will be made to Pain Management for evaluation and to discuss the possibility of receiving cortisone injections for back and knee pain. (4) Low back pain: Comment: 2018 [facility] L4-L5 disc bulge with left nerve root impingement, Left L5 transforaminal epidural injection May 2020 Code(s): M54.5 - Low back pain Category: Medical Qualifiers: Chronicity: chronic Back pain laterality: midline Sciatica presence: without sciatica Qualified Code(s): M54.5 - Low back pain; G89.29 - Other chronic pain Plan: - A referral will be made to Pain Management for evaluation and to discuss the possibility of receiving cortisone injections for back and knee pain. (5) Iron deficiency anemia: Code(s): D50.9 - Iron deficiency anemia, unspecified Category: Medical Qualifiers: Iron deficiency anemia type: unspecified iron deficiency Qualified Code(s): D50.9 - Iron deficiency anemia, unspecified Plan: - Iron supplementation will be prescribed. - A referral will be made to Gastroenterology for a colonoscopy to evaluate for a gastrointestinal source of blood loss. - Iron studies will be repeated as part of the updated lab work. (6) Vitamin D deficiency: Code(s): E55.9 - Vitamin D deficiency, unspecified Category: Medical Plan: - Vitamin D supplementation will be prescribed. - A vitamin D level will be checked with routine labs. (7) GERD (gastroesophageal reflux disease): Code(s): K21.9 - Gastro-esophageal reflux disease without esophagitis Category: Medical Qualifiers: Esophagitis presence: without esophagitis Qualified Code(s): K21.9 - Gastro-esophageal reflux disease without esophagitis Plan: - Prescribe omeprazole as requested by the patient. Plan I reviewed the patient's medication list, agreeing to prescribe hydroxyzine and omeprazole while discontinuing vitamin C. I explained the need for updated fasting labs, as the most recent ones were from last year, and informed the patient we would check for anemia, vitamin levels, and thyroid function. I discussed the history of iron deficiency anemia and the importance of restarting iron supplements. I also recommended a referral to GI for a colonoscopy to investigate the cause of the anemia, to which the patient agreed. I will also prescribe vitamin D for the patient's deficiency. I will place referrals to psychiatry for management of anxiety and depression, and to pain management for a consultation on cortisone injections for chronic back and knee pain. Regarding the patient's cough, I reassured that antibiotics are not needed and recommended [id number] remedies. I offered routine vaccinations for COVID-19 and influenza, which the patient declined. The patient also declined a repeat Hepatitis C test, stating that a recent test was negative. Orders: Orders Complete Blood Count no Diff Today Z00.00 - Encounter for general adult medical examination without abnormal findings Ferritin Today Z00.00 - Encounter for general adult medical examination without abnormal findings IRON PROFILE Today Z00.00 - Encounter for general adult medical examination without abnormal findings Lipid Panel Today Z00.00 - Encounter for general adult medical examination without abnormal findings Vitamin B12 and Folate Today D64.9 - Anemia, unspecified, Z00.00 - Encounter for general adult medical examination without abnormal findings TSH reflex Free T4 Today Z00.00 - Encounter for general adult medical examination without abnormal findings UA and rflx microscopic Today Z00.00 - Encounter for general adult medical examination without abnormal findings Comprehensive Met. Panel Today Z00.00 - Encounter for general adult medical examination without abnormal findings Hemoglobin A1c Today Z00.00 - Encounter for general adult medical examination without abnormal findings Vitamin D 25-OH Total Today Z00.00 - Encounter for general adult medical examination without abnormal findings Referrals Pain Management Referral G89.29 - Other chronic pain, M25.569 - Pain in unspecified knee, M54.5 - Low back pain Psychiatry Referral F41.1 - Generalized anxiety disorder, Z00.00 - Encounter for general adult medical examination without abnormal findings Open Access Screening Colonoscopy Referral Z00.00 - Encounter for general adult medical examination without abnormal findings, Z12.11 - Encounter for screening for malignant neoplasm of colon, Z12.12 - Encounter for screening for malignant neoplasm of rectum Medications: New hydroxyzine HCl 25 mg PO TID 90 tabs 3RF ferrous sulfate 325 mg PO DAILY 90 tabs 3RF cholecalciferol (vitamin D3) 25 mcg PO DAILY 90 caps 3RF Refilled omeprazole 20 mg PO DAILY 30 caps 3RF K21.9 - Gastro-esophageal reflux disease without esophagitis
[2025-06-18 11:46] VITALS: BP 110/80; PULSE 103; TEMP 35.8; O2SAT 99; BMI 26.2
--- OUTSIDE RECORDS SUMMARY | 2025-06-18 15:26 | XMS_ITS | Clinical Summary ---
Author Organization [employer] [facility] ity Address [address] [place] [address] Care Team Providers Care Private Investigator Name Role Phone Unavailable Primary Care Provider Unavailabl e Social History Tobacco Use Types Packs/Day Years Used Date Smoking Tobacco: Never Assessed Sex and Gender Information Value Date Recorded Sex Assigned at Not on file Legal Sex Male 1:39 PM EDT Gender Identity Not on file Sexual Orientation Not on file Plan of Treatment Health Maintenance Due Date Last Done Comments Colorectal Cancer Screening: Colonoscopy 1976 DTaP,Tdap,and Td Vaccines (1 - Tdap) 1995 Hepatitis B Vaccines (1 of 3 - 19+ 3-dose series) 1995 Cholesterol Screening (Lipid Panel) 02/25/2024 HIV Screening 02/25/2024 Hepatitis C Screening 02/25/2024 Social Influencers of Health Screening 02/25/2024 Depression Screening 07/26/2024 COVID-19 Vaccine ( - 2024-2 6 season) 2025 Influenza Vaccine (#1) 2025 RSV Immunization Adult Patie nts (1 - 1-dose 75+ series) 2051 HIB Vaccines Aged Out No longer eligi ble based on patient's age to complete this topic HPV Vaccines Aged Out No longer eligi ble based on patient's age to complete this topic Hepatitis A Vaccines Aged Out No long er eligible based on patient's age to complete this topic IPV Vaccines Aged Out No longer eligi ble based on patient's age to complete this topic MMR Vaccines Aged Out No longer eligi ble based on patient's age to complete this topic Meningococcal ACWY Vaccine Aged Out N o longer eligible based on patient's age to complete this topic Meningococcal B Vaccine Aged Out No l onger eligible based on patient's age to complete this topic Pneumococcal Vaccine: Pediat rics (0 to 5 Years) and At-Risk Patients (6 to 49 Years) Aged Out No longer eligible b ased on patient's age to complete this topic RSV Immunization Patients Un maria del rosario 20 months Aged Out No longer eligible b ased on patient's age to complete this topic Varicella Vaccines Aged Out No longer eligible based on patient's age to complete this topic
== END 2025-06-18 12:28 | disposition home or self-care (01) ==
LOC: HO.HMCH 11:37
PROVIDERS: PCP Internal Medicine; Visit Provider Internal Medicine
DX: Z00.00 Encounter for general adult medical examination without abnormal findings (principal); F41.1 Generalized anxiety disorder; M25.561 Pain in right knee; M25.562 Pain in left knee; G89.29 Other chronic pain; M54.50 Low back pain, unspecified; D50.9 Iron deficiency anemia, unspecified; E55.9 Vitamin D deficiency, unspecified; K21.9 Gastro-esophageal reflux disease without esophagitis

== ENCOUNTER → 2025-06-18 11:35 | Outpatient (BNVA) | payer OTHER, SELFPAY | PROVIDERS: PCP Internal Medicine; Visit Provider Internal Medicine | DX: Z00.00 Encounter for general adult medical examination without abnormal findings (principal); F32.A Depression, unspecified; M54.50 Low back pain, unspecified; M25.561 Pain in right knee; M25.562 Pain in left knee; E55.9 Vitamin D deficiency, unspecified; I10 Essential (primary) hypertension; F41.1 Generalized anxiety disorder; G89.29 Other chronic pain; D50.9 Iron deficiency anemia, unspecified; K21.9 Gastro-esophageal reflux disease without esophagitis; Z79.899 Other long term (current) drug therapy | CPT/HCPCS: 99396 ==

== ENCOUNTER 2025-07-24 09:08 | Outpatient (REF) | payer OTHER, SELFPAY ==
--- NOTE | ~2025-07-24 | XR_ITS ---
XR KNEE JASON 3V HISTORY: Chronic knee pain. COMPARISON: December 21, 2018. TECHNIQUE: AP view bilateral knees standing, lateral and patellofemoral views bilateral knees. FINDINGS: RIGHT KNEE: No fracture, dislocation, or suspicious bone lesion. Joint spaces are normal in all 3 compartments. Normal patellar alignment. No abnormal patellar tilt. No evidence of joint effusion. Soft tissues appear normal. LEFT KNEE: No fracture, dislocation, or suspicious bone lesion. Joint spaces are normal in all 3 compartments. Normal patellar alignment. No abnormal patellar tilt. No evidence of joint effusion. Soft tissues appear normal. XR/XR Knee Jason 3V IMPRESSION: 1. Normal bilateral knees. Electronically signed by: Jordon Drake MD 07/24/2025 10:35 AM ELI
--- NOTE | ~2025-07-24 | XR_ITS ---
EXAMINATION: XR LUMBAR SPINE 4 OR MORE VIEWS HISTORY: M54.5 - Low back pain COMPARISON: Comparison is made with the prior examination dated 03/25/2017. FINDINGS: AP, lateral, bilateral oblique, and coned down views of the lumbar spine are submitted. Osseous mineralization is normal. Five nonrib-bearing lumbar vertebral bodies are identified, maintaining normal height and alignment without evidence of fracture or spondylolisthesis. The intervertebral disc spaces are preserved. The posterior elements are intact. The visualized paraspinal soft tissues are unremarkable. XR/XR lumbar spine 4V min IMPRESSION: Unremarkable examination of the lumbar spine. Electronically signed by: Saroj Kennedy MD 07/24/2025 11:48 AM EST
== END 2025-07-24 09:09 | disposition home or self-care (01) ==
LOC: HO.XRAY 09:08
PROVIDERS: PCP Internal Medicine; Visit Provider Nurse Practitioner Family
DX: M17.0 Bilateral primary osteoarthritis of knee (principal); G89.29 Other chronic pain; M54.50 Low back pain, unspecified; M47.817 Spondylosis without myelopathy or radiculopathy, lumbosacral region
CPT/HCPCS: 72110; 73562; 99202

== ENCOUNTER 2025-07-24 09:08 | Outpatient (AMB) | payer OTHER, SELFPAY ==
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
[2025-07-24 09:19] VITALS: BP 129/83; PULSE 92; O2SAT 98; BMI 28.6
--- OUTSIDE RECORDS SUMMARY | 2025-07-24 11:26 | XMS_ITS | Patient Health Record ---
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
== END 2025-07-24 09:44 | disposition home or self-care (01) ==
LOC: HO.PMC 09:08
PROVIDERS: PCP Internal Medicine; Visit Provider Nurse Practitioner Family
DX: M25.561 Pain in right knee (principal); M25.562 Pain in left knee; M17.0 Bilateral primary osteoarthritis of knee; M54.50 Low back pain, unspecified; G89.29 Other chronic pain; M47.817 Spondylosis without myelopathy or radiculopathy, lumbosacral region
CPT/HCPCS: 99204

== ENCOUNTER → 2025-07-24 10:06 | Outpatient (BNV) | payer OTHER, SELFPAY | PROVIDERS: PCP Internal Medicine; Visit Provider Radiology Diagnostic Radiology | DX: M54.50 Low back pain, unspecified (principal); M25.561 Pain in right knee; M25.562 Pain in left knee | CPT/HCPCS: 72110; 73562 ==